=== PATIENT | female | born 1975 | race Caucasian/White ===

== ENCOUNTER 2017-06-27 21:00 | Emergency (ER) | payer SELFPAY ==
[~2017-06-27] VITALS: Ht 157.5 cm; Wt 120.5 kg
[~2017-06-27 21:00] MED LIST: IBUP-2343 PO
[2017-06-27] MEDS ORDERED: ACET-66 PO (21:16)
[2017-06-27] MEDS ORDERED: HYDROCODONE/ACETAMINOPHEN 5-325 MG TABLET PO ONE (22:30)
[2017-06-27 23:53] VITALS: BP 149/101
== END 2017-06-27 23:56 | disposition home or self-care (01) ==
LOC: EMS 21:04
DX: S16.1XXA Strain of muscle, fascia and tendon at neck level, initial encounter (principal); S39.012A Strain of muscle, fascia and tendon of lower back, initial encounter; I10 Essential (primary) hypertension; M19.90 Unspecified osteoarthritis, unspecified site; F17.210 Nicotine dependence, cigarettes, uncomplicated; V43.52XA Car driver injured in collision with other type car in traffic accident, initial encounter; Y93.89 Activity, other specified; Y92.89 Other specified places as the place of occurrence of the external cause; Y99.8 Other external cause status; Z79.899 Other long term (current) drug therapy
CPT/HCPCS: 72040; 72100; 99284

== ENCOUNTER 2018-12-29 20:54 | Inpatient (IN) | payer OTHER ==
[~2018-12-29] VITALS: Ht 157.5 cm; Wt 123.3 kg
[~2018-12-29 20:54] MED LIST changes: +ACET-66 PO; -IBUP-2343 PO
[2018-12-29 23:26] LABS: BASOPHILS % (AUTO) 0.5 % (0.0-2.0); HEMATOCRIT 40.7 % (36-46); HEMOGLOBIN 13.2 g/dL (12.0-16.0); MEAN CORPUSCULAR HEMOGLOBIN 28.6 pg (26.0-34.0); MEAN CORPUSCULAR HGB CONC 32.4 G/dL (31.0-37.0); MEAN CORPUSCULAR VOLUME 89 fL (80-100); MONOCYTES # (AUTO) 0.6 K/uL (0.1-1.0); MONOCYTES % (AUTO) 6.7 % (2.0-9.0); NEUTROPHILS # (AUTO) 4.5 K/uL (1.8-7.7); NEUTROPHILS % (AUTO) 53.8 % (40.0-70.0); PLATELET COUNT (AUTO) 284 K/uL (150-450); RED CELL DISTRIBUTION WIDTH 15.2 % (11.5-14.5)
[2018-12-29 23:35] LABS: ANION GAP 11 mmol/L (8-16); CALCIUM, TOTAL 9.7 mg/dL (8.8-10.5); CARBON DIOXIDE 26 mmol/L (22-29); CHLORIDE 101 mmol/L (98-107); CREATININE 0.74 mg/dL (0.60-1.30); GLOMERULAR FILTR. RATE CALC > 60 mL/min (>60); GLUCOSE,RANDOM 127 mg/dL (70-110); POTASSIUM 3.5 mmol/L (3.5-5.1); SODIUM SERUM 138 mmol/L (136-145); UREA NITROGEN, BLOOD 9 mg/dL (7-18)
[2018-12-29 23:54] LABS: ALANINE AMINOTRANSFERASE 37 U/L (12-78); ALBUMIN 3.9 g/dL (3.4-5.0); ALKALINE PHOSPHATASE 92 U/L (46-116); ASPARTATE AMINOTRANSFERASE 27 U/L (15-37); BILIRUBIN,TOTAL 0.3 mg/dL (0.1-1.0); HCG,QUANTITATIVE 1 mIU/mL (0-6); TOTAL PROTEIN, SERUM 7.6 g/dL (6.4-8.2)
[2018-12-30 00:31] LABS: APPEARANCE,URINE CLEAR (CLEAR); BILIRUBIN,URINE NEGATIVE (NEGATIVE); GLUCOSE, URINE (UA) NEGATIVE (NEGATIVE); KETONES,URINE NEGATIVE (NEGATIVE); LEUKOCYTE ESTERASE ,URINE NEGATIVE (NEGATIVE); NITRATE,URINE NEGATIVE (NEGATIVE); OCCULT BLOOD,URINE NEGATIVE (NEGATIVE); PH,URINE 5.5 (5.0-8.0); PROTEIN,URINE NEGATIVE (NEGATIVE); UROBILINOGEN,URINE 0.2 mg/dL (<=1.0)
[2018-12-30 00:32] LABS: INR 0.9 (0.9-1.1); PROTHROMBIN TIME 9.7 SEC (9.4-11.6)
[2018-12-30] MEDS ORDERED: ONDANSETRON HCL 4 MG/2 ML VIAL IVP PRN ×2 (02:15→11:15)
[2018-12-30] MEDS ORDERED: ACETAMINOPHEN 325 MG TABLET PO PRN (02:15)
[2018-12-30] MEDS ORDERED: 0.9% SODIUM CHLORIDE 10 ML SYRINGE IVP PRN (02:15)
[2018-12-30 03:19] VITALS: BP 157/82
[2018-12-30 07:50] VITALS: BP 142/77
[2018-12-30] MEDS ORDERED: DSS100 PO (08:51)
[2018-12-30] MEDS ORDERED: TRAM50TA4 PO (08:51)
[2018-12-30] MEDS ORDERED: VENL-68 PO (08:51)
[2018-12-30] MEDS ORDERED: ESTR-95 PO (08:51)
[2018-12-30] MEDS ORDERED: LORA10TA7 PO (08:51)
[2018-12-30] MEDS ORDERED: PRAZ1 PO (08:51)
[2018-12-30 11:05] VITALS: BP 135/80
[2018-12-30] MEDS ORDERED: NITROGLYCERIN 2% (1 GM=INCH) PACKET TP PRN (11:15)
[2018-12-30] MEDS ORDERED: NITROGLYCERIN 0.4 MG SUBLINGUAL TABLET #25 SL PRN (11:15)
[2018-12-30] MEDS: ASPIRIN 81 MG CHEWABLE TABLET PO SCH (12:32)
[2018-12-30 15:50] VITALS: BP 150/83
[2018-12-30] MEDS ORDERED: HYDR25TA PO (16:11)
[2018-12-30] MEDS ORDERED: ACETAMINOPHEN 500 MG TABLET PO SCH (16:45)
[2018-12-30] MEDS: HYDROCHLOROTHIAZIDE 25 MG TABLET PO SCH (17:14)
[2018-12-30] MEDS: ESTRADIOL 1 MG TABLET PO SCH (17:14)
[2018-12-30] MEDS: LORATADINE 10 MG TABLET PO SCH (17:14)
[2018-12-30] MEDS: VENLAFAXINE HCL 150 MG ER CAPSULE PO SCH (17:14)
[2018-12-30] MEDS: ZOLPIDEM TARTRATE 10 MG TABLET PO PRN (20:47)
[2018-12-30] MEDS: PRAZOSIN HCL 1 MG CAPSULE PO SCH (20:48)
[2018-12-30] MEDS: DOCUSATE SODIUM 100 MG CAPSULE PO SCH (20:48)
[2018-12-30] MEDS: ACETAMINOPHEN 325 MG TABLET PO PRN (21:19)
[2018-12-31 00:16] VITALS: BP 144/86
[2018-12-31 04:27] VITALS: BP 143/81
[2018-12-31] MEDS: ACETAMINOPHEN 325 MG TABLET PO PRN ×2 (05:29→20:35)
[2018-12-31 06:44] LABS: BASOPHILS % (AUTO) 0.4 % (0.0-2.0); EOSINOPHILS % (AUTO) 2.8 % (1.0-6.0); HEMATOCRIT 40.2 % (36-46); HEMOGLOBIN 13.2 g/dL (12.0-16.0); LYMPHOCYTES # (AUTO) 1.9 K/uL (1.0-4.8); LYMPHOCYTES % (AUTO) 32.8 % (22.0-44.0); MEAN CORPUSCULAR HEMOGLOBIN 28.8 pg (26.0-34.0); MEAN CORPUSCULAR HGB CONC 32.8 G/dL (31.0-37.0); MEAN CORPUSCULAR VOLUME 88 fL (80-100); MONOCYTES # (AUTO) 0.4 K/uL (0.1-1.0); MONOCYTES % (AUTO) 6.5 % (2.0-9.0); NEUTROPHILS # (AUTO) 3.3 K/uL (1.8-7.7); NEUTROPHILS % (AUTO) 57.5 % (40.0-70.0); PLATELET COUNT (AUTO) 222 K/uL (150-450); RED BLOOD CELL COUNT(AUTO) 4.59 MIL/uL (4.00-5.20); RED CELL DISTRIBUTION WIDTH 15.3 % (11.5-14.5)
[2018-12-31 07:02] LABS: ALANINE AMINOTRANSFERASE 38 U/L (12-78); ALBUMIN 3.5 g/dL (3.4-5.0); ALKALINE PHOSPHATASE 87 U/L (46-116); ANION GAP 9 mmol/L (8-16); ASPARTATE AMINOTRANSFERASE 20 U/L (15-37); BILIRUBIN,TOTAL 0.3 mg/dL (0.1-1.0); CALCIUM, TOTAL 9.5 mg/dL (8.8-10.5); CARBON DIOXIDE 27 mmol/L (22-29); CHLORIDE 102 mmol/L (98-107); CHOL/HDL RATIO 7.9 (3.9-5.7); CHOLESTEROL 236 mg/dL (131-200); CREATININE 0.65 mg/dL (0.60-1.30); GLOMERULAR FILTR. RATE CALC > 60 mL/min (>60); GLUCOSE,RANDOM 123 mg/dL (70-110); HDL CHOLESTEROL 30 mg/dL (40-60); LDL CHOL (CALC.) 177 mg/dL (0-130); POTASSIUM 4.2 mmol/L (3.5-5.1); SODIUM SERUM 138 mmol/L (136-145); TOTAL PROTEIN, SERUM 7.1 g/dL (6.4-8.2); TRIGLYCERIDES 146 mg/dL (15-150); UREA NITROGEN, BLOOD 12 mg/dL (7-18)
[2018-12-31 08:06] VITALS: BP 147/92
[2018-12-31] MEDS: FAMOTIDINE 10 MG/ML 2 ML VIAL IVP SCH (08:44)
[2018-12-31] MEDS: LORATADINE 10 MG TABLET PO SCH (09:01)
[2018-12-31] MEDS: ASPIRIN 81 MG CHEWABLE TABLET PO SCH (09:01)
[2018-12-31] MEDS: VENLAFAXINE HCL 150 MG ER CAPSULE PO SCH (09:01)
[2018-12-31] MEDS: HYDROCHLOROTHIAZIDE 25 MG TABLET PO SCH (09:01)
[2018-12-31] MEDS: ESTRADIOL 1 MG TABLET PO SCH (09:04)
[2018-12-31] MEDS: DOCUSATE SODIUM 100 MG CAPSULE PO SCH ×2 (09:05→21:12)
[2018-12-31 11:46] VITALS: BP 143/88
[2018-12-31] MEDS: MORPHINE SULFATE 2 MG/ML SYRINGE IVP PRN (13:00)
[2018-12-31 19:56] VITALS: BP 151/78
[2018-12-31] MEDS: ZOLPIDEM TARTRATE 10 MG TABLET PO PRN (21:12)
[2018-12-31] MEDS: PRAZOSIN HCL 1 MG CAPSULE PO SCH (21:12)
[2018-12-31 23:57] VITALS: BP 150/89
[2019-01-01 02:35] VITALS: BP 151/83
[2019-01-01] MEDS: MORPHINE SULFATE 2 MG/ML SYRINGE IVP PRN (02:40)
[2019-01-01 05:05] VITALS: BP 146/84
[2019-01-01 07:46] VITALS: BP 130/87
[2019-01-01] MEDS: FAMOTIDINE 10 MG/ML 2 ML VIAL IVP SCH (08:33)
[2019-01-01] MEDS: DOCUSATE SODIUM 100 MG CAPSULE PO SCH (08:34)
[2019-01-01] MEDS: HYDROCHLOROTHIAZIDE 25 MG TABLET PO SCH (08:34)
[2019-01-01] MEDS: LORATADINE 10 MG TABLET PO SCH (08:34)
[2019-01-01] MEDS: ESTRADIOL 1 MG TABLET PO SCH (08:34)
[2019-01-01] MEDS: VENLAFAXINE HCL 150 MG ER CAPSULE PO SCH (08:34)
[2019-01-01] MEDS: ASPIRIN 81 MG CHEWABLE TABLET PO SCH (08:34)
[2019-01-01] MEDS ORDERED: IOVERSOL 350 MG/ML 150 ML VIAL ONE (11:52)
[2019-01-01 11:54] VITALS: BP 136/76
== END 2019-01-01 14:33 | disposition home or self-care (01) | DRG 203 ==
LOC: EMS 20:56 → 5S 12-30 01:30
PROVIDERS: ADMIT Internal Medicine; ATTEND Internal Medicine
DX: R07.89 Other chest pain (principal); Z68.42 Body mass index [BMI] 45.0-49.9, adult; J20.9 Acute bronchitis, unspecified; B86 Scabies; F17.210 Nicotine dependence, cigarettes, uncomplicated; I10 Essential (primary) hypertension; M19.90 Unspecified osteoarthritis, unspecified site; E66.9 Obesity, unspecified
CPT/HCPCS: 71275; 93005; 99406; J2270; J2405; J3490

== ENCOUNTER 2019-06-24 22:27 | Emergency (ER) | payer OTHER ==
[~2019-06-24] VITALS: Ht 157.5 cm; Wt 129.6 kg
[~2019-06-24 22:27] MED LIST changes: +DSS100 PO; +ESTR-95 PO; +HYDR-1475 PO; +LORA10TA7 PO; +PRAZ1 PO; +TRAM50TA4 PO; +VENL-68 PO
[2019-06-24] MEDS ORDERED: IBUP-2071 PO (22:49)
[2019-06-25 00:20] VITALS: BP 147/85
== END 2019-06-25 00:35 | disposition home or self-care (01) ==
LOC: EMS 22:28
DX: S93.401A Sprain of unspecified ligament of right ankle, initial encounter (principal); I10 Essential (primary) hypertension; F17.210 Nicotine dependence, cigarettes, uncomplicated; Z90.710 Acquired absence of both cervix and uterus; Z88.5 Allergy status to narcotic agent; W18.40XA Slipping, tripping and stumbling without falling, unspecified, initial encounter; Y93.89 Activity, other specified; Y92.89 Other specified places as the place of occurrence of the external cause; Y99.8 Other external cause status

== ENCOUNTER 2019-12-07 19:40 | Emergency (ER) | payer OTHER ==
[~2019-12-07] VITALS: Ht 157.5 cm; Wt 134.1 kg
[~2019-12-07 19:40] MED LIST changes: -ACET-66 PO; -DSS100 PO; +IBUP-2071 PO; -TRAM50TA4 PO
[2019-12-07 20:51] LABS: EOSINOPHILS % (AUTO) 2.7 % (1.0-6.0); HEMATOCRIT 38.9 % (36-46); LYMPHOCYTES # (AUTO) 2.7 K/uL (1.0-4.8); LYMPHOCYTES % (AUTO) 26.8 % (22.0-44.0); MEAN CORPUSCULAR HEMOGLOBIN 28.6 pg (26.0-34.0); MEAN CORPUSCULAR HGB CONC 33.5 G/dL (31.0-37.0); MEAN CORPUSCULAR VOLUME 85 fL (80-100); MONOCYTES # (AUTO) 0.6 K/uL (0.1-1.0); MONOCYTES % (AUTO) 6.4 % (2.0-9.0); NEUTROPHILS # (AUTO) 6.3 K/uL (1.8-7.7); NEUTROPHILS % (AUTO) 63.1 % (40.0-70.0); PLATELET COUNT (AUTO) 318 K/uL (150-450); RED BLOOD CELL COUNT(AUTO) 4.56 MIL/uL (4.00-5.20); RED CELL DISTRIBUTION WIDTH 15.3 % (11.5-14.5)
[2019-12-07 21:03] LABS: ANION GAP 5 mmol/L (8-16); CALCIUM, TOTAL 9.3 mg/dL (8.8-10.5); CARBON DIOXIDE 31 mmol/L (22-29); CHLORIDE 105 mmol/L (98-107); GLOMERULAR FILTR. RATE CALC > 60 mL/min (>60); GLUCOSE,RANDOM 167 mg/dL (70-110); POTASSIUM 3.8 mmol/L (3.5-5.1); SODIUM SERUM 141 mmol/L (136-145); UREA NITROGEN, BLOOD 16 mg/dL (7-18)
[2019-12-07 21:11] LABS: ALANINE AMINOTRANSFERASE 58 U/L (12-78); ALBUMIN 3.7 g/dL (3.4-5.0); ALKALINE PHOSPHATASE 109 U/L (46-116); ASPARTATE AMINOTRANSFERASE 30 U/L (15-37); BILIRUBIN,TOTAL 0.2 mg/dL (0.1-1.0); LIPASE 99 U/L (73-393); TOTAL PROTEIN, SERUM 7.3 g/dL (6.4-8.2)
[2019-12-07 21:44] LABS: HCG,QUANTITATIVE 1 mIU/mL (0-6)
[2019-12-07] MEDS ORDERED: SODIUM CHLORIDE 0.9% 1,000 ML IV ONE (22:15)
[2019-12-07] MEDS ORDERED: KETOROLAC TROMETHAMINE 30 MG/ML VIAL IVP ONE (22:15)
[2019-12-07] MEDS ORDERED: ONDANSETRON HCL 4 MG/2 ML VIAL IVP ONE (22:15)
[2019-12-07 22:19] LABS: APPEARANCE,URINE CLEAR (CLEAR); BILIRUBIN,URINE NEGATIVE (NEGATIVE); GLUCOSE, URINE (UA) NEGATIVE (NEGATIVE); KETONES,URINE NEGATIVE (NEGATIVE); LEUKOCYTE ESTERASE ,URINE MODERATE (NEGATIVE); NITRATE,URINE NEGATIVE (NEGATIVE); OCCULT BLOOD,URINE TRACE (NEGATIVE); PH,URINE 5.5 (5.0-8.0); PROTEIN,URINE NEGATIVE (NEGATIVE); UROBILINOGEN,URINE 0.2 mg/dL (<=1.0)
[2019-12-07 22:30] LABS: RBC,URINE 0-2 /HPF (0-2)
[2019-12-07 22:31] LABS: BACTERIA,URINE Few /HPF (None Seen); CALCIUM OXALATE CRYSTALS,UR Many /LPF (None Seen); SQUAMOUS EPITHELIAL CELL,UR Few /LPF (None Seen)
[2019-12-08] VITALS: BP 119/66
== END 2019-12-08 00:36 | disposition home or self-care (01) ==
LOC: EMS 19:41
DX: N39.0 Urinary tract infection, site not specified (principal); E86.0 Dehydration; I10 Essential (primary) hypertension; F17.210 Nicotine dependence, cigarettes, uncomplicated; Z90.710 Acquired absence of both cervix and uterus; Z88.5 Allergy status to narcotic agent
CPT/HCPCS: 36415; 74176; 80053; 81001; 83690; 84484; 84702; 85025; 87086; 93005; 96361; 96374; 96375; 99285; J1885; J2405; J7030

== ENCOUNTER 2019-12-09 21:15 | Emergency (ER) | payer OTHER ==
[~2019-12-09] VITALS: Ht 157.5 cm; Wt 134.1 kg
[2019-12-09] MEDS ORDERED: KETOROLAC TROMETHAMINE 60 MG/2 ML VIAL IM ONE (22:45)
[2019-12-09] MEDS ORDERED: CARISOPRODOL 350 MG TABLET PO ONE (22:45)
[2019-12-09] MEDS ORDERED: MethylPREDNISolone SOD SUCC 125 MG/2 ML VIAL IM ONE (22:45)
[2019-12-09 23:00] VITALS: BP 142/71
== END 2019-12-09 23:25 | disposition home or self-care (01) ==
LOC: EMS 21:15
DX: M54.42 Lumbago with sciatica, left side (principal); I10 Essential (primary) hypertension; F17.210 Nicotine dependence, cigarettes, uncomplicated; Z90.710 Acquired absence of both cervix and uterus; Z88.5 Allergy status to narcotic agent
CPT/HCPCS: 96372; 99284; J1885; J2930

== ENCOUNTER 2023-04-25 23:52 | Emergency (ER) | payer OTHER ==
[~2023-04-25] VITALS: Ht 157.5 cm; Wt 124.5 kg
[~2023-04-25 23:52] MED LIST changes: -HYDR-1475 PO; +HYDR25TA2 PO; +IBUP-1493 PO; -IBUP-2071 PO
[2023-04-26] MEDS ORDERED: FAMOTIDINE 20 MG/2 ML VIAL IVP ONE (00:30)
[2023-04-26] MEDS ORDERED: MAG HYDROX/ALUMINUM HYD/SIMETH 30 ML SUSPENSION UDCUP PO ONE (00:30)
[2023-04-26] MEDS ORDERED: ACETAMINOPHEN 500 MG TABLET PO ONE (00:30)
[2023-04-26] MEDS ORDERED: ONDANSETRON HCL 4 MG/2 ML VIAL IVP ONE (00:30)
[2023-04-26] MEDS ORDERED: SODIUM CHLORIDE 0.9% 1,000 ML IV ONE (00:30)
[2023-04-26] MEDS ORDERED: KETOROLAC TROMETHAMINE 30 MG/ML VIAL IVP ONE (00:30)
[2023-04-26 00:56] LABS: BASOPHILS % (AUTO) 0.6 % (0.0-2.0); HEMATOCRIT 36.1 % (36-46); HEMOGLOBIN 11.9 g/dL (12.0-16.0); LYMPHOCYTES # (AUTO) 3.2 K/uL (1.0-4.8); LYMPHOCYTES % (AUTO) 21.8 % (22.0-44.0); MEAN CORPUSCULAR HEMOGLOBIN 28.4 pg (26.0-34.0); MEAN CORPUSCULAR HGB CONC 32.8 G/dL (31.0-37.0); MEAN CORPUSCULAR VOLUME 87 fL (80-100); MONOCYTES # (AUTO) 0.7 K/uL (0.1-1.0); MONOCYTES % (AUTO) 4.9 % (2.0-9.0); NEUTROPHILS # (AUTO) 10.7 K/uL (1.8-7.7); NEUTROPHILS % (AUTO) 71.7 % (40.0-70.0); PLATELET COUNT (AUTO) 317 K/uL (150-450); RED BLOOD CELL COUNT(AUTO) 4.17 MIL/uL (4.00-5.20); RED CELL DISTRIBUTION WIDTH 15.9 % (11.5-14.5); WHITE BLOOD COUNT (AUTO) 14.9 K/uL (4.5-11.0)
[2023-04-26 01:07] LABS: CALCIUM, TOTAL 9.4 mg/dL (8.8-10.5); CREATININE 1.06 mg/dL (0.60-1.30); POTASSIUM 4.1 mmol/L (3.5-5.1)
[2023-04-26 01:10] LABS: ALBUMIN 3.4 g/dL (3.4-5.0); BILIRUBIN,TOTAL 0.2 mg/dL (0.1-1.0); TOTAL PROTEIN, SERUM 7.6 g/dL (6.4-8.2)
[2023-04-26] MEDS ORDERED: IOHEXOL 350 MG/ML 100 ML VIAL ONE (01:51)
[2023-04-26] MEDS ORDERED: SODIUM CHLORIDE 0.9% 100 ML ONE (01:51)
[2023-04-26 02:31] LABS: APPEARANCE,URINE CLEAR (CLEAR); BILIRUBIN,URINE NEGATIVE (NEGATIVE); COLOR,URINE COLORLESS (YELLOW); GLUCOSE, URINE (UA) NEGATIVE (NEGATIVE); KETONES,URINE NEGATIVE (NEGATIVE); LEUKOCYTE ESTERASE ,URINE NEGATIVE (NEGATIVE); NITRATE,URINE NEGATIVE (NEGATIVE); OCCULT BLOOD,URINE NEGATIVE (NEGATIVE); PROTEIN,URINE NEGATIVE (NEGATIVE); SPECIFIC GRAVITIY, URINE 1.011 (1.003-1.030); UROBILINOGEN,URINE <=1.0 mg/dL (<=1.0)
[2023-04-26 05:25] VITALS: BP 112/74; PULSE 68; RESP 18; TEMP 97.8
== END 2023-04-26 05:33 | disposition home or self-care (01) ==
LOC: EMS 23:55
DX: R10.30 Lower abdominal pain, unspecified (principal); E11.9 Type 2 diabetes mellitus without complications; E78.00 Pure hypercholesterolemia, unspecified; I10 Essential (primary) hypertension; N80.9 Endometriosis, unspecified; F17.210 Nicotine dependence, cigarettes, uncomplicated; Z90.710 Acquired absence of both cervix and uterus; Z88.5 Allergy status to narcotic agent
CPT/HCPCS: 99285; 80053; 81003; 83690; 84703; 85025; 36415; 74177; 96374; 96375; 96361; J3490; J1885; J2405; Q9967; J7030; J7050

== ENCOUNTER 2023-06-18 00:52 | Emergency (ER) | payer OTHER ==
[~2023-06-18] VITALS: Ht 157.5 cm; Wt 123.0 kg
[2023-06-18 00:57] VITALS: TEMP 97.8
[2023-06-18] MEDS: KETOROLAC TROMETHAMINE 30 MG/ML VIAL IVP ONE (01:12)
[2023-06-18] MEDS: ONDANSETRON HCL 4 MG/2 ML VIAL IVP ONE (01:12)
[2023-06-18 01:17] LABS: BASOPHILS % (AUTO) 0.6 % (0.0-2.0); EOSINOPHILS % (AUTO) 2.1 % (1.0-6.0); HEMATOCRIT 36.1 % (36-46); HEMOGLOBIN 11.7 g/dL (12.0-16.0); LYMPHOCYTES # (AUTO) 2.5 K/uL (1.0-4.8); LYMPHOCYTES % (AUTO) 23.6 % (22.0-44.0); MEAN CORPUSCULAR HEMOGLOBIN 27.5 pg (26.0-34.0); MEAN CORPUSCULAR HGB CONC 32.5 G/dL (31.0-37.0); MEAN CORPUSCULAR VOLUME 85 fL (80-100); MONOCYTES # (AUTO) 0.6 K/uL (0.1-1.0); MONOCYTES % (AUTO) 5.5 % (2.0-9.0); NEUTROPHILS # (AUTO) 7.2 K/uL (1.8-7.7); NEUTROPHILS % (AUTO) 68.2 % (40.0-70.0); PLATELET COUNT (AUTO) 303 K/uL (150-450); RED BLOOD CELL COUNT(AUTO) 4.27 MIL/uL (4.00-5.20); RED CELL DISTRIBUTION WIDTH 15.8 % (11.5-14.5); WHITE BLOOD COUNT (AUTO) 10.6 K/uL (4.5-11.0)
[2023-06-18 01:27] LABS: APPEARANCE,URINE CLEAR (CLEAR); BILIRUBIN,URINE NEGATIVE (NEGATIVE); COLOR,URINE LIGHT YELLOW (YELLOW); GLUCOSE, URINE (UA) NEGATIVE (NEGATIVE); KETONES,URINE NEGATIVE (NEGATIVE); LEUKOCYTE ESTERASE ,URINE NEGATIVE (NEGATIVE); NITRATE,URINE NEGATIVE (NEGATIVE); OCCULT BLOOD,URINE NEGATIVE (NEGATIVE); PROTEIN,URINE NEGATIVE (NEGATIVE); SPECIFIC GRAVITIY, URINE 1.007 (1.003-1.030); UROBILINOGEN,URINE <=1.0 mg/dL (<=1.0)
[2023-06-18 01:30] LABS: ANION GAP 6 mmol/L (8-16); CALCIUM, TOTAL 9.5 mg/dL (8.8-10.5); CARBON DIOXIDE 31 mmol/L (22-29); CHLORIDE 101 mmol/L (98-107); CREATININE 0.77 mg/dL (0.60-1.30); GLOMERULAR FILTR. RATE CALC > 60 mL/min (>60); GLUCOSE,RANDOM 187 mg/dL (70-110); POTASSIUM 3.2 mmol/L (3.5-5.1); SODIUM SERUM 138 mmol/L (136-145); UREA NITROGEN, BLOOD 10 mg/dL (7-18)
[2023-06-18 01:35] LABS: ALANINE AMINOTRANSFERASE 51 U/L (12-78); ALBUMIN 3.4 g/dL (3.4-5.0); ALKALINE PHOSPHATASE 106 U/L (46-116); ASPARTATE AMINOTRANSFERASE 27 U/L (15-37); BILIRUBIN,TOTAL 0.3 mg/dL (0.1-1.0); LIPASE 17 U/L (16-77); TOTAL PROTEIN, SERUM 7.1 g/dL (6.4-8.2)
[2023-06-18 01:37] LABS: TROPONIN I-HIGH SENSITIVITY 5 ng/L (<51)
[2023-06-18 01:39] LABS: ALCOHOL, URINE DRUG SCREEN NEGATIVE (NEGATIVE); AMPHET/METH SCREEN,URINE NEGATIVE (NEGATIVE); BARBITURATE SCREEN, URINE NEGATIVE (NEGATIVE); BENZODIAZEPINES SCREEN,URINE NEGATIVE (NEGATIVE); CANNABINOID SCREEN,URINE NEGATIVE (NEGATIVE); COCAINE SCREEN,URINE NEGATIVE (NEGATIVE); METHADONE SCREEN, URINE NEGATIVE (NEGATIVE); OPIATE SCREEN,URINE NEGATIVE (NEGATIVE); PHENCYCLIDINE SCREEN,URINE NEGATIVE (NEGATIVE)
[2023-06-18 03:00] VITALS: BP 143/77; PULSE 79; RESP 18
[2023-06-18] MEDS: POTASSIUM CHLORIDE 20 MEQ ER TABLET PO ONE (03:25)
[2023-06-18] MEDS ORDERED: TRAM-559 PO (03:32)
[2023-06-18 09:51] LABS: GLUCOMETER DEV NAME(LOC) ERT.5; GLUCOSE,POINT OF CARE 182 MG/DL (70-110)
== END 2023-06-18 04:01 | disposition home or self-care (01) ==
LOC: EMS 00:52
DX: E87.6 Hypokalemia (principal); R20.2 Paresthesia of skin; R51.9 Headache, unspecified; M19.90 Unspecified osteoarthritis, unspecified site; E11.9 Type 2 diabetes mellitus without complications; E78.00 Pure hypercholesterolemia, unspecified; I10 Essential (primary) hypertension; F17.210 Nicotine dependence, cigarettes, uncomplicated; Z90.710 Acquired absence of both cervix and uterus; Z88.8 Allergy status to other drugs, medicaments and biological substances
CPT/HCPCS: 99285; 96374; 70450; 71045; 96375; 80053; 81003; 82962; 83690; 83880; 84484; 85025; 36415; 93005; 80307; J1885; J2405; G0480

== ENCOUNTER 2024-09-26 22:27 | Emergency (ER) | payer OTHER ==
[~2024-09-26] VITALS: Ht 152.4 cm; Wt 118.2 kg
[~2024-09-26 22:27] MED LIST changes: +ATOR40TA71 PO; +BACI28.410 TP; +CHOL200074 PO; +DILT-119 PO; -ESTR-95 PO; +FAMO20 PO; +HYDR-4808 PO; +HYDR25TA PO; -HYDR25TA2 PO; +HYDR28.35 TP; -IBUP-1493 PO; -LORA10TA7 PO; +MELO-106 PO; +METF-446 PO; +PANT40TA54 PO; -PRAZ1 PO
[2024-09-26 22:34] VITALS: TEMP 98.2
[2024-09-26] MEDS ORDERED: LIDO1ADH83 TP (22:49)
[2024-09-26] MEDS ORDERED: TRET20CR TP (22:49)
[2024-09-26] MEDS ORDERED: DICL100G60 TP (22:49)
[2024-09-26] MEDS ORDERED: ROSU20TA98 PO (22:49)
[2024-09-26] MEDS ORDERED: LISI-894 PO (22:49)
[2024-09-26] MEDS ORDERED: FURO20TA5 PO (22:49)
[2024-09-26] MEDS ORDERED: KETO-99 OU (22:49)
[2024-09-26] MEDS ORDERED: CLOB15CR10 TP (22:49)
[2024-09-26] MEDS ORDERED: TRI115O TP (22:49)
[2024-09-26] MEDS ORDERED: GABA-1216 PO (22:49)
[2024-09-26] MEDS ORDERED: SITA25 PO (22:49)
[2024-09-26 22:55] LABS: GLUCOMETER DEV NAME(LOC) ER.7; GLUCOSE,POINT OF CARE 106 MG/DL (70-110)
[2024-09-26 22:59] LABS: APPEARANCE,URINE CLEAR (CLEAR); BILIRUBIN,URINE NEGATIVE (NEGATIVE); COLOR,URINE YELLOW (YELLOW); GLUCOSE, URINE (UA) NEGATIVE (NEGATIVE); KETONES,URINE NEGATIVE (NEGATIVE); LEUKOCYTE ESTERASE ,URINE SMALL (NEGATIVE); NITRATE,URINE NEGATIVE (NEGATIVE); OCCULT BLOOD,URINE NEGATIVE (NEGATIVE); PROTEIN,URINE NEGATIVE (NEGATIVE); SPECIFIC GRAVITIY, URINE 1.023 (1.003-1.030)
[2024-09-26 22:59] LABS: BASOPHILS % (AUTO) 0.5 % (0.0-2.0); EOSINOPHILS % (AUTO) 2.4 % (1.0-6.0); HEMATOCRIT 35.6 % (36-46); HEMOGLOBIN 11.8 g/dL (12.0-16.0); LYMPHOCYTES # (AUTO) 2.6 K/uL (1.0-4.8); LYMPHOCYTES % (AUTO) 34.8 % (22.0-44.0); MEAN CORPUSCULAR HEMOGLOBIN 27.9 pg (26.0-34.0); MEAN CORPUSCULAR HGB CONC 33.2 G/dL (31.0-37.0); MEAN CORPUSCULAR VOLUME 84 fL (80-100); MONOCYTES # (AUTO) 0.5 K/uL (0.1-1.0); MONOCYTES % (AUTO) 6.3 % (2.0-9.0); NEUTROPHILS # (AUTO) 4.1 K/uL (1.8-7.7); PLATELET COUNT (AUTO) 241 K/uL (150-450); RED BLOOD CELL COUNT(AUTO) 4.24 MIL/uL (4.00-5.20); RED CELL DISTRIBUTION WIDTH 15.5 % (11.5-14.5); WHITE BLOOD COUNT (AUTO) 7.4 K/uL (4.5-11.0)
[2024-09-26 23:15] LABS: TROPONIN I-HIGH SENSITIVITY 10 ng/L (<51)
[2024-09-26 23:19] LABS: ANION GAP 7 mmol/L (8-16); CALCIUM, TOTAL 8.8 mg/dL (8.8-10.5); CARBON DIOXIDE 30 mmol/L (22-29); CHLORIDE 106 mmol/L (98-107); CREATININE 0.87 mg/dL (0.60-1.30); GLOMERULAR FILTR. RATE CALC > 60 mL/min (>60); GLUCOSE,RANDOM 131 mg/dL (70-110); POTASSIUM 3.7 mmol/L (3.5-5.1); SODIUM SERUM 143 mmol/L (136-145); UREA NITROGEN, BLOOD 10 mg/dL (7-18)
[2024-09-26 23:33] LABS: BACTERIA,URINE Few /HPF (None Seen); RBC,URINE None Seen /HPF (0-2); SQUAMOUS EPITHELIAL CELL,UR Moderate /LPF (None Seen)
[2024-09-27 01:03] LABS: TROPONIN I-HIGH SENSITIVITY 4 ng/L (<51)
[2024-09-27 02:43] VITALS: BP 129/71; PULSE 64; RESP 19; O2SAT 98
== END 2024-09-27 02:44 | disposition home or self-care (01) ==
LOC: EMS 22:30
DX: R07.9 Chest pain, unspecified (principal); M25.512 Pain in left shoulder; I10 Essential (primary) hypertension; E11.9 Type 2 diabetes mellitus without complications; E78.00 Pure hypercholesterolemia, unspecified; F32.A Depression, unspecified; F17.210 Nicotine dependence, cigarettes, uncomplicated; Z88.5 Allergy status to narcotic agent; Z90.710 Acquired absence of both cervix and uterus; Z79.84 Long term (current) use of oral hypoglycemic drugs; Z79.899 Other long term (current) drug therapy
CPT/HCPCS: 71045; 80048; 81001; 82962; 84484; 85025; 93005; 99285; 36415-L1; 36415-TC